=== PATIENT | male | born 1960 | race Caucasian/White ===

== ENCOUNTER 2022-11-06 18:50 | Emergency (ER) | payer SELFPAY ==
[~2022-11-06] VITALS: Ht 177.8 cm; Wt 95.3 kg
[2022-11-06 18:50] VITALS: BP 199/123
--- NOTE | 2022-11-06 18:50 | NUR ---
TO [facility], LISA HUMPHREYS
--- NOTE | 2022-11-06 19:32 | NUR ---
YULIANA MCGOWAN examining patient.
[2022-11-06 19:50] VITALS: BP 194/113
--- NOTE | 2022-11-06 19:50 | NUR ---
PATIENT [facility]. PATIENT EXAMINED BY YULIANA MCGOWAN. PATIENT MEDICALLY CLEARED AND RELEASED IN CUSTODY IN STABLE CONDITION. ORIGINAL PRE-BOOK FORM GIVEN TO OFFICER LILIANA #[id number].
== END 2022-11-06 19:50 ==
LOC: MED 18:50
DX: Z02.89 Encounter for other administrative examinations (principal); I10 Essential (primary) hypertension
CPT/HCPCS: 99283